=== PATIENT | female | born 1965 | race African-American/Black ===

== ENCOUNTER 2017-08-15 23:09 | Emergency (ER) | payer MEDICARE, OTHER ==
[~2017-08-15] VITALS: Ht 167.6 cm; Wt 63.5 kg
[2017-08-15 23:43] LABS: Basophils # (auto) 0 uL; Basophils % (auto) 0.7 % (0.0-2.0); Eosinophils # (auto) 0.1 uL; Eosinophils % (auto) 0.9 % (0.0-7.0); Hemoglobin 11.1 g/dL (12.2-16.2); Lymphocytes # (auto) 1.7 uL; Lymphocytes % (auto) 30.9 % (10.0-50.0); Mean Corpuscular Hgb Conc. 32.5 g/dL (32.0-36.0); Mean Corpuscular Volume 92.2 fL (80.0-100.0); Mean Platelet Volume 7.6 fL (6.9-10.8); Monocytes # (auto) 0.6 uL; Monocytes % (auto) 10.3 % (0.0-12.0); Neutrophils # (auto) 3.1 uL; Neutrophils % (auto) 57.2 % (37.0-80.0); Nucleated Red Blood Cells % 0.1 %; Platelet Count (auto) 213 10^3/uL (140-450); Red Cell Distribution Width 16.5 % (11.8-14.3); White Blood Cell 5.4 10^3/uL (4.4-10.8)
[2017-08-16 00:01] LABS: Albumin 3.3 g/dL (3.4-5.0); Anion Gap 9 (5-15); Aspartate Aminotransferase 22 U/L (15-37); BUN/Creatinine Ratio 21.7; Blood Urea Nitrogen 15 mg/dL (7-18); Calcium 8.2 mg/dL (8.5-10.1); Carbon Dioxide 24 mmol/L (21-32); Chloride 108 mmol/L (98-107); GFR African American 114 mL/min; GFR Non-African American 94 mL/min; Glucose 128 mg/dL (74-106); Magnesium 2.2 mg/dL (1.6-2.6); Potassium 3.4 mmol/L (3.5-5.1); Sodium 141 mmol/L (136-145)
[2017-08-16 00:06] LABS: Alkaline Phosphatase 74 U/L (45-117); Bilirubin, Total 0.4 mg/dL (0.2-1.0); Total Protein 6.8 g/dL (6.4-8.2)
[2017-08-16] MEDS ORDERED: diphenhdrAMINE HCL 50 MG/1 ML VL IV ONE (00:45)
[2017-08-16] MEDS ORDERED: LORazepam 2MG/ML-1ML VIAL IV ONE (00:45)
[2017-08-16 01:23] LABS: B-Type Natriuretic Peptide 44.4 pg/mL (0-100); Temperature: 22.7 C (20.0-25.0)
[2017-08-16 01:26] VITALS: BP 149/84
[2017-08-16] MEDS ORDERED: DEXTROSE 50% SYRINGE 50 ML IV ONE (11:48)
== END 2017-08-16 05:15 | disposition home or self-care (01) ==
LOC: EDBD 23:09 → ER 23:13
DX: F44.9 Dissociative and conversion disorder, unspecified (principal); R42 Dizziness and giddiness; I50.9 Heart failure, unspecified; I11.0 Hypertensive heart disease with heart failure; F41.9 Anxiety disorder, unspecified; Z86.73 Personal history of transient ischemic attack (TIA), and cerebral infarction without residual deficits; Z88.6 Allergy status to analgesic agent; Z88.1 Allergy status to other antibiotic agents; Z88.8 Allergy status to other drugs, medicaments and biological substances
CPT/HCPCS: 36415; 70450; 80053; 83735; 83880; 84443; 84484; 85025; 93005; 94761; 96374; 96375; 99285; J1200; J2060; J7042

== ENCOUNTER 2017-08-17 01:56 | Emergency (ER) | payer MEDICARE, OTHER ==
[~2017-08-17] VITALS: Ht 170.2 cm; Wt 70.3 kg
[2017-08-17] MEDS ORDERED: LORazepam 2MG/ML-1ML VIAL ONE (02:44)
[2017-08-17] MEDS ORDERED: diphenhdrAMINE HCL 50 MG/1 ML VL ONE (02:44)
[2017-08-17] MEDS ORDERED: LORazepam 2MG/ML-1ML VIAL IV ONE (03:00)
[2017-08-17] MEDS ORDERED: diphenhdrAMINE HCL 50 MG/1 ML VL IV ONE (03:00)
[2017-08-17 03:10] LABS: Albumin 3.5 g/dL (3.4-5.0); BUN/Creatinine Ratio 20.3; Calcium 8.5 mg/dL (8.5-10.1); Potassium 3.5 mmol/L (3.5-5.1)
[2017-08-17 03:13] LABS: Bilirubin, Total 0.3 mg/dL (0.2-1.0); Total Protein 6.9 g/dL (6.4-8.2)
[2017-08-17 03:35] LABS: Basophils # (auto) 0 uL; Basophils % (auto) 0.9 % (0.0-2.0); Eosinophils # (auto) 0 uL; Eosinophils % (auto) 0.8 % (0.0-7.0); Hematocrit 33.8 % (36.0-46.0); Lymphocytes # (auto) 1.6 uL; Lymphocytes % (auto) 31.8 % (10.0-50.0); Mean Corpuscular Hemoglobin 29.9 pg (28.0-32.0); Mean Corpuscular Hgb Conc. 32.6 g/dL (32.0-36.0); Mean Corpuscular Volume 91.6 fL (80.0-100.0); Mean Platelet Volume 8.1 fL (6.9-10.8); Monocytes # (auto) 0.5 uL; Monocytes % (auto) 9.8 % (0.0-12.0); Neutrophils # (auto) 2.9 uL; Neutrophils % (auto) 56.7 % (37.0-80.0); Platelet Count (auto) 211 10^3/uL (140-450); Red Cell Distribution Width 16.2 % (11.8-14.3); White Blood Cell 5.2 10^3/uL (4.4-10.8)
[2017-08-17 08:16] LABS: Urine RBC None Seen /hpf (0 - 4)
[2017-08-17 08:30] VITALS: BP 159/99
[2017-08-17] MEDS ORDERED: OXcarbazepine 300 MG TAB PO ONE (08:30)
[2017-08-17 08:52] LABS: Urine Bilirubin Negative (Negative); Urine Blood Negative /uL (Negative); Urine Color Yellow (Yellow); Urine Glucose Normal (Normal); Urine Ketone Negative (Negative); Urine Mucus FEW (None Seen); Urine Nitrite Negative (Negative); Urine Squamous Epithelial Cell FEW /hpf (<5); Urine Urobilinogen Normal (Negative)
== END 2017-08-17 08:57 | disposition home or self-care (01) ==
LOC: EDBD 01:56 → ER 02:00
DX: F41.9 Anxiety disorder, unspecified (principal); I48.91 Unspecified atrial fibrillation; I11.0 Hypertensive heart disease with heart failure; I50.9 Heart failure, unspecified; J45.909 Unspecified asthma, uncomplicated; Z90.710 Acquired absence of both cervix and uterus; Z88.8 Allergy status to other drugs, medicaments and biological substances; Z88.6 Allergy status to analgesic agent
CPT/HCPCS: 36415; 80053; 81001; 81025; 85025; 93005; 96374; 96375; 99285; J1200; J2060

== ENCOUNTER 2017-12-08 10:01 | Emergency (ER) | payer MEDICARE, OTHER ==
[~2017-12-08] VITALS: Ht 167.6 cm; Wt 56.7 kg
[2017-12-08] MEDS ORDERED: AMMONIA 0.33 ML INHALANT IN ONE (10:40)
[2017-12-08 10:48] VITALS: BP 145/97
[2017-12-08 11:17] LABS: Basophils # (auto) 0 uL; Basophils % (auto) 0.6 % (0.0-2.0); Eosinophils # (auto) 0 uL; Eosinophils % (auto) 0.9 % (0.0-7.0); Hematocrit 35.6 % (36.0-46.0); Hemoglobin 11.6 g/dL (12.2-16.2); Lymphocytes # (auto) 1.5 uL; Lymphocytes % (auto) 44.4 % (10.0-50.0); Mean Corpuscular Hemoglobin 28.9 pg (28.0-32.0); Mean Corpuscular Hgb Conc. 32.5 g/dL (32.0-36.0); Mean Corpuscular Volume 89.1 fL (80.0-100.0); Monocytes # (auto) 0.3 uL; Monocytes % (auto) 8.4 % (0.0-12.0); Neutrophils # (auto) 1.5 uL; Neutrophils % (auto) 45.7 % (37.0-80.0); Nucleated Red Blood Cells % 0.3 %; Platelet Count (auto) 213 10^3/uL (140-450); Red Cell Distribution Width 13.6 % (11.8-14.3); White Blood Cell 3.4 10^3/uL (4.4-10.8)
[2017-12-08 11:52] LABS: Albumin 3.8 g/dL (3.4-5.0); Bilirubin, Total 0.5 mg/dL (0.2-1.0); Calcium 9.8 mg/dL (8.5-10.1); Potassium 3.5 mmol/L (3.5-5.1); Total Protein 7.7 g/dL (6.4-8.2)
== END 2017-12-08 12:43 | disposition home or self-care (01) ==
LOC: ER 10:01
DX: R56.9 Unspecified convulsions (principal); J45.909 Unspecified asthma, uncomplicated; I10 Essential (primary) hypertension; Z88.8 Allergy status to other drugs, medicaments and biological substances; Z88.6 Allergy status to analgesic agent
CPT/HCPCS: 36415; 70450; 80053; 85025

== ENCOUNTER 2021-10-17 08:28 | Inpatient (IN) | payer OTHER ==
[~2021-10-17] VITALS: Ht 165.1 cm; Wt 70.0 kg
[2021-10-17] MEDS ORDERED: amLODIPine BESYLATE 5 MG TAB PO ONE (09:00)
[2021-10-17] MEDS ORDERED: ONDANSETRON HCL 4 MG/2 ML VIAL IV ONE (10:45)
[2021-10-17 11:14] LABS: Basophils # (auto) 0 10 ^3/uL (0-0.2); Basophils % (auto) 0.9 % (0.0-2.0); Eosinophils # (auto) 0 10 ^3/uL (0-0.8); Eosinophils % (auto) 0.8 % (0.0-7.0); Hematocrit 33.3 % (36.0-46.0); Hemoglobin 10.8 g/dL (12.2-16.2); Lymphocytes # (auto) 2.2 10 ^3/uL (0.4-5.4); Mean Corpuscular Hemoglobin 28.3 pg (28.0-32.0); Mean Corpuscular Hgb Conc. 32.3 g/dL (32.0-36.0); Mean Corpuscular Volume 87.5 fL (80.0-100.0); Monocytes # (auto) 0.6 10 ^3/uL (0-1.3); Monocytes % (auto) 10.9 % (0.0-12.0); Neutrophils # (auto) 2.3 10 ^3/uL (1.6-8.6); Neutrophils % (auto) 44.4 % (37.0-80.0); Red Cell Distribution Width 14.3 % (11.8-14.3); White Blood Cell 5.1 10^3/uL (4.4-10.8)
[2021-10-17 11:23] LABS: Albumin 4.1 g/dL (3.4-5.0); Calcium 9.6 mg/dL (8.5-10.1); Potassium 3.7 mmol/L (3.5-5.1)
[2021-10-17 11:29] LABS: BUN/Creatinine Ratio 23.4; Bilirubin, Total 0.6 mg/dL (0.2-1.0)
[2021-10-17] MEDS ORDERED: LORazepam 2MG/ML-1ML VIAL IV ONE (12:15)
[2021-10-17] MEDS ORDERED: NITROGLYCERIN 0.4 MG SL TAB SL PRN (13:30)
[2021-10-17] MEDS ORDERED: LABETALOL HCL 5 MG/ML 4ML SYRINGE IV ONE (13:30)
[2021-10-17] MEDS ORDERED: MORPHINE SULFATE INJECTION 2 MG/ML SYRG IV PRN (13:30)
[2021-10-17] MEDS ORDERED: LABETALOL HCL 5 MG/ML 4ML SYRINGE IV PRN (15:15)
[2021-10-17] MEDS ORDERED: FOLIC ACID 1 MG TAB PO ONE (16:00)
[2021-10-17] MEDS ORDERED: FAMOTIDINE (10MG/ML) 2ML VL IV ONE (16:00)
[2021-10-17] MEDS ORDERED: HYDROcodone-ACET 5/325MG TAB PO PRN (16:00)
[2021-10-17] MEDS ORDERED: HYDROcodone-ACET 5/325MG TAB PO ONE (16:00)
[2021-10-17] MEDS ORDERED: LACTULOSE 20Gm/30ML SOLN PO PRN (16:00)
[2021-10-17] MEDS ORDERED: MULTIPLE VITAMINS W/ MINERALS TAB PO ONE (16:00)
[2021-10-17] MEDS ORDERED: ONDANSETRON HCL 4 MG/2 ML VIAL IV PRN (16:00)
[2021-10-17] MEDS ORDERED: hydrALAZINE HCL 20 MG/ML VL IV PRN (16:00)
[2021-10-17] MEDS ORDERED: DOCUSATE SOD 100 MG CAP PO PRN (16:00)
[2021-10-17] MEDS ORDERED: IPRATROPIUM BROM 0.5 MG/2.5ML INH SOL NEB ONE (16:00)
[2021-10-17] MEDS ORDERED: HYDROmorphone HCL 2 MG/ML VL IV PRN (16:00)
[2021-10-17] MEDS: LORazepam 2MG/ML-1ML VIAL IV PRN (16:21)
[2021-10-17 16:27] LABS: Magnesium 1.7 mg/dL (1.6-2.6); Phosphorus 2.6 mg/dL (2.5-4.90)
[2021-10-17] MEDS: DICYCLOMINE HCL 10 MG CAP PO SCH ×2 (17:52→21:43)
[2021-10-17] MEDS: SODIUM CHLORIDE 0.9% 1,000 ML IV SCH (17:57)
[2021-10-17] MEDS ORDERED: IPRATROPIUM BROM 0.5 MG/2.5ML INH SOL NEB SCH (18:00)
[2021-10-17 18:30] VITALS: BP 121/82
[2021-10-17] MEDS ORDERED: INFLUENZA QUAD 2021-2022 0.5 ML SYRG IM ONE (19:00)
[2021-10-17 19:57] LABS: INR 1.09 (0.9-1.15); Partial Thromboplastin Time 31.4 sec (23.6-33.0)
[2021-10-17 21:00] VITALS: BP 146/89
[2021-10-17] MEDS: ATORVASTATIN 20 MG TAB PO SCH (21:43)
[2021-10-17] MEDS: OXcarbazepine 300 MG TAB PO SCH (21:44)
[2021-10-18] VITALS (7 sets, daily range): BP systolic 105–165; BP diastolic 68–96
[2021-10-18] MEDS: BACLOFEN 10 MG TAB PO PRN (04:04)
[2021-10-18] MEDS: HYDROcodone-ACET 5/325MG TAB PO PRN (04:27)
[2021-10-18] MEDS: DICYCLOMINE HCL 10 MG CAP PO SCH ×4 (06:08→22:09)
[2021-10-18 06:27] LABS: Basophils # (auto) 0 10 ^3/uL (0-0.2); Basophils % (auto) 0.4 % (0.0-2.0); Eosinophils # (auto) 0.1 10 ^3/uL (0-0.8); Eosinophils % (auto) 2.2 % (0.0-7.0); Hemoglobin 9.5 g/dL (12.2-16.2); Lymphocytes # (auto) 1.9 10 ^3/uL (0.4-5.4); Lymphocytes % (auto) 53.1 % (10.0-50.0); Mean Corpuscular Hemoglobin 28.3 pg (28.0-32.0); Mean Corpuscular Volume 85.9 fL (80.0-100.0); Monocytes # (auto) 0.4 10 ^3/uL (0-1.3); Monocytes % (auto) 10.9 % (0.0-12.0); Neutrophils # (auto) 1.2 10 ^3/uL (1.6-8.6); Neutrophils % (auto) 33.4 % (37.0-80.0); Nucleated Red Blood Cells % 0.1 %; Red Blood Cells 3.37 10^6/uL (4.0-5.20); White Blood Cell 3.6 10^3/uL (4.4-10.8)
[2021-10-18 06:50] LABS: INR 1.08 (0.9-1.15); Partial Thromboplastin Time 31.2 sec (23.6-33.0)
[2021-10-18 06:59] LABS: Potassium 3.5 mmol/L (3.5-5.1)
[2021-10-18 07:05] LABS: Albumin 3.4 g/dL (3.4-5.0); BUN/Creatinine Ratio 17.9; Bilirubin, Total 0.6 mg/dL (0.2-1.0); CRP High Sensitivity 0.05 mg/dL (< 0.3); Calcium 8.8 mg/dL (8.5-10.1); Magnesium 2.1 mg/dL (1.6-2.6); Total Protein 6.6 g/dL (6.4-8.2)
[2021-10-18] MEDS: SODIUM CHLORIDE 0.9% 1,000 ML IV SCH (08:40)
[2021-10-18] MEDS: BENZTROPINE MESY 0.5 MG TAB PO SCH (10:30)
[2021-10-18] MEDS: FOLIC ACID 1 MG TAB PO SCH (10:30)
[2021-10-18] MEDS: NIFEdipine ER 30 MG TAB PO SCH (10:30)
[2021-10-18] MEDS: ENOXAPARIN SOD 40 MG/0.4 ML SYRINGE SC SCH (10:30)
[2021-10-18] MEDS: OXcarbazepine 300 MG TAB PO SCH ×2 (10:30→22:09)
[2021-10-18] MEDS: MULTIPLE VITAMINS W/ MINERALS TAB PO SCH (10:30)
[2021-10-18] MEDS: FAMOTIDINE (10MG/ML) 2ML VL IV SCH (10:30)
[2021-10-18] MEDS: BENAZEPRIL HCL 10 MG TAB PO SCH (10:30)
[2021-10-18] MEDS: METOPROLOL SUCCINATE XL 50 MG TAB PO SCH (10:30)
[2021-10-18] MEDS: LORazepam 2MG/ML-1ML VIAL IV PRN ×2 (10:45→21:08)
[2021-10-18 11:10] LABS: Alcohol, Urine < 3.0 mg/dL (0-10); Amphetamine Screen, Urine NEGATIVE (NEGATIVE); Barbiturate Scree,Urine NEGATIVE (NEGATIVE); Benzodiazephine Screen, Urine NEGATIVE (NEGATIVE); Cannabinoid Screen, Urine NEGATIVE (NEGATIVE); Cocaine Screen, Urine NEGATIVE (NEGATIVE); Opiate Scree,Urine NEGATIVE (NEGATIVE); Phencyclidine Screen, Urine NEGATIVE (NEGATIVE)
[2021-10-18] MEDS ORDERED: ADENOSINE 51 MG in GIVE UN-DILUTED 0 ML IV STA (13:06)
[2021-10-18] MEDS: ATORVASTATIN 20 MG TAB PO SCH (22:10)
[2021-10-19] MEDS: SODIUM CHLORIDE 0.9% 1,000 ML IV SCH ×2 (01:20→17:55)
[2021-10-19] MEDS: HYDROcodone-ACET 5/325MG TAB PO PRN ×2 (03:39→12:21)
[2021-10-19 05:00] VITALS: BP 139/101
[2021-10-19] MEDS: DICYCLOMINE HCL 10 MG CAP PO SCH ×4 (05:19→22:15)
[2021-10-19 09:00] VITALS: BP 158/95
[2021-10-19] MEDS: MULTIPLE VITAMINS W/ MINERALS TAB PO SCH (10:00)
[2021-10-19] MEDS: FOLIC ACID 1 MG TAB PO SCH (10:00)
[2021-10-19] MEDS: NIFEdipine ER 30 MG TAB PO SCH (10:00)
[2021-10-19] MEDS: METOPROLOL SUCCINATE XL 50 MG TAB PO SCH (10:00)
[2021-10-19] MEDS: ENOXAPARIN SOD 40 MG/0.4 ML SYRINGE SC SCH (10:00)
[2021-10-19] MEDS: BENZTROPINE MESY 0.5 MG TAB PO SCH (10:00)
[2021-10-19] MEDS: BENAZEPRIL HCL 10 MG TAB PO SCH (10:00)
[2021-10-19] MEDS: OXcarbazepine 300 MG TAB PO SCH ×2 (10:00→22:15)
[2021-10-19] MEDS: FAMOTIDINE (10MG/ML) 2ML VL IV SCH (10:00)
[2021-10-19] MEDS: BACLOFEN 10 MG TAB PO PRN (12:21)
[2021-10-19 13:00] VITALS: BP_SYST 122; BP_SYST 131; BP_DIAS 44; BP_DIAS 84
[2021-10-19 17:00] VITALS: BP 123/95
[2021-10-19 22:00] VITALS: BP 131/80
[2021-10-19] MEDS: ATORVASTATIN 20 MG TAB PO SCH (22:15)
[2021-10-20] MEDS: HYDROcodone-ACET 5/325MG TAB PO PRN (02:53)
[2021-10-20 05:00] VITALS: BP 149/88
[2021-10-20] MEDS: DICYCLOMINE HCL 10 MG CAP PO SCH ×3 (05:41→18:00)
[2021-10-20 09:00] VITALS: BP 155/110
[2021-10-20] MEDS: NIFEdipine ER 30 MG TAB PO SCH (09:19)
[2021-10-20] MEDS: MULTIPLE VITAMINS W/ MINERALS TAB PO SCH (09:20)
[2021-10-20] MEDS: BACLOFEN 10 MG TAB PO PRN (09:20)
[2021-10-20] MEDS: BENZTROPINE MESY 0.5 MG TAB PO SCH (09:21)
[2021-10-20] MEDS: FOLIC ACID 1 MG TAB PO SCH (09:21)
[2021-10-20] MEDS: BENAZEPRIL HCL 10 MG TAB PO SCH (09:21)
[2021-10-20] MEDS: ENOXAPARIN SOD 40 MG/0.4 ML SYRINGE SC SCH (09:23)
[2021-10-20] MEDS: OXcarbazepine 300 MG TAB PO SCH (09:34)
[2021-10-20] MEDS: METOPROLOL SUCCINATE XL 50 MG TAB PO SCH (09:34)
[2021-10-20] MEDS: SODIUM CHLORIDE 0.9% 1,000 ML IV SCH (09:36)
[2021-10-20] MEDS: FAMOTIDINE (10MG/ML) 2ML VL IV SCH (09:36)
[2021-10-20 13:00] VITALS: BP 159/106
[2021-10-20 16:37] VITALS: BP 116/94
== END 2021-10-20 19:00 | disposition home or self-care (01) | DRG 304 ==
LOC: ER 08:28 → TELE 13:25 → TELE-CENTR 17:45
PROVIDERS: ADMIT Hospitalist; ATTEND Internal Medicine Geriatric Medicine
DX: I16.1 Hypertensive emergency (principal); G93.41 Metabolic encephalopathy; I24.9 Acute ischemic heart disease, unspecified; R55 Syncope and collapse; D64.9 Anemia, unspecified; Z20.822 Contact with and (suspected) exposure to COVID-19; E78.5 Hyperlipidemia, unspecified; F41.9 Anxiety disorder, unspecified; G24.9 Dystonia, unspecified; G40.409 Other generalized epilepsy and epileptic syndromes, not intractable, without status epilepticus; I11.9 Hypertensive heart disease without heart failure; I25.10 Atherosclerotic heart disease of native coronary artery without angina pectoris; M19.90 Unspecified osteoarthritis, unspecified site; J45.909 Unspecified asthma, uncomplicated; Z83.3 Family history of diabetes mellitus; Z82.49 Family history of ischemic heart disease and other diseases of the circulatory system; Z90.711 Acquired absence of uterus with remaining cervical stump; Z79.899 Other long term (current) drug therapy; Z90.710 Acquired absence of both cervix and uterus; Z88.6 Allergy status to analgesic agent
CPT/HCPCS: 36415; 70450; 71045; 73110; 73130; 78452; 80053; 80061; 80307; 82728; 83036; 83615; 83735; 83880; 84100; 84443; 84484; 85025; 85379; 85610; 85730; 86141; 87040; 87070; 87081; 87086; 87205; 87426; 93005; 93017; 93306; 93886; 96374; 96375; 97163; G0378; J0153; J2405; J3490